=== PATIENT | male | born 1940 | race Caucasian/White ===

== ENCOUNTER 2020-03-15 19:10 | Emergency (ER) | payer MEDICARE, OTHER ==
[~2020-03-15] VITALS: Ht 182.9 cm; Wt 82.7 kg
[2020-03-15 19:43] VITALS: BP 143/65
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
[2020-03-15] MEDS ORDERED: LIDOCAINE 1% Multi-Dose 20 ML VIAL. INJ ONE (20:00)
--- NOTE | 2020-03-15 20:27 | RAD ---
Examination: 3 views of the left hand HISTORY: History of laceration COMPARISON: None available FINDINGS: The metacarpophalangeal, interphalangeal joints grossly appears unremarkable. There is severe joint s pace loss identified in the first carpometacarpal joint likely degenerative disease. There is moderat e joint space loss likely degenerative changes identified in the first metacarpophalangeal joint. The re is no obvious acute fracture identified. IMPRESSION: 1. Severe degenerative changes identified in the first carpometacarpal joint. 2. Moderate degenerative changes first metacarpophalangeal joint. 3. No obvious acute osseous findings. Electronically signed by: Jace Arambula MD (03/15/2020 8:25 PM) [id number]
== END 2020-03-15 21:13 | disposition home or self-care (01) ==
LOC: ER 19:10
DX: S61.217A Laceration without foreign body of left little finger without damage to nail, initial encounter (principal); F41.9 Anxiety disorder, unspecified; F32.9 Major depressive disorder, single episode, unspecified; K21.9 Gastro-esophageal reflux disease without esophagitis; E78.00 Pure hypercholesterolemia, unspecified; I11.9 Hypertensive heart disease without heart failure; F17.200 Nicotine dependence, unspecified, uncomplicated; Z95.0 Presence of cardiac pacemaker; Z98.890 Other specified postprocedural states; Z91.040 Latex allergy status; W26.8XXA Contact with other sharp object(s), not elsewhere classified, initial encounter; Y93.89 Activity, other specified; Y92.89 Other specified places as the place of occurrence of the external cause; Y99.8 Other external cause status
CPT/HCPCS: 12002; 73130; 99283; J3490